=== PATIENT | female | born 1945 | race African-American/Black ===

== ENCOUNTER 2021-08-10 08:53 | Observation (INO) ==
[2021-08-10] MEDS ORDERED: ACETAMINOPHEN 325 MG TABLET PO PRN (08:59)
[2021-08-10] MEDS ORDERED: ALUMINUM/MAGNES/SIMETH MAX STR 30 ML UDCUP PO PRN (08:59)
[2021-08-10] MEDS ORDERED: MORPHINE 2 MG/1 ML SYRINGE IV PRN (08:59)
[2021-08-10] MEDS ORDERED: BISACODYL 5 MG TABLET PO PRN (08:59)
[2021-08-10] MEDS ORDERED: diphenhydrAMINE CAP 25 MG CAPSULE PO PRN (08:59)
[2021-08-10] MEDS ORDERED: ONDANSETRON 4 MG/2 ML VIAL IV PRN (08:59)
[2021-08-10] MEDS ORDERED: ZALEPLON 5 MG CAPSULE PO PRN (08:59)
[2021-08-10] MEDS ORDERED: SIMETHICONE CHEW 125 MG TABLET PO PRN (08:59)
[2021-08-10] MEDS ORDERED: LACTULOSE 20 GM/30 ML UDCUP PO PRN (08:59)
[2021-08-10] MEDS ORDERED: hydrALAZINE 20 MG/1 ML VIAL IV PRN (08:59)
[2021-08-10] MEDS ORDERED: CALCIUM CARBONATE CHEW 500 MG TABLET PO PRN (08:59)
[2021-08-10 10:51] LABS: Basophils # 0.1 10*3/uL (0.0-0.2); Basophils % 1.6 % (0.0-0.8); Eosinophils # 0.1 10*3/uL (0.0-0.87); Eosinophils % 2.3 % (0.00-10.9); Hematocrit 38.1 VOL% (35.7-47.0); Hemoglobin 12.3 GM/DL (12.0-16.0); Immature Granulocytes % 0.2 %; Immature Granulocytes Absolute 0.01 #; Lymphocytes # 1.5 10*3/uL (1.4-4.0); Lymphocytes % 33.9 % (21.3-54.2); Mean Corpuscular HGB Conc 32.3 GM/DL (32-36); Mean Corpuscular Volume 90.7 FL (87-102); Mean Platelet Volume 9.9 FL (9.6-12.0); Monocytes # 0.5 10*3/uL (0.11-0.8); Monocytes % 12.4 % (1.7-12.7); Neutrophils % 49.6 % (38.7-73.9); Platelet Count 292 T/CUMM (130-400); Red Cell Distribution Width 14.4 % (9.3-17.3); White Blood Count 4.4 T/CUMM (4-12)
[2021-08-10] MEDS ORDERED: NITROGLYCERIN SL 0.4 MG TABLET SL PRN (10:56)
[2021-08-10 11:28] LABS: Albumin 3.7 G/DL (3.4-5.0); Bilirubin,Total 0.6 MG/DL (0.20-1.00); Calcium 9.7 MG/DL (8.5-10.1); Osmolality,Calculated 283.1 MOS/KG (273-304)
[2021-08-10 11:34] LABS: Thyroid Stimulating Hormone 1.79 uIU/ml (0.358-3.74)
[2021-08-10] MEDS: ENOXAPARIN 40 MG/0.4 ML SYRINGE SUBCUT SCH (14:12)
[2021-08-10] MEDS: PANTOPRAZOLE 40 MG TABLET PO SCH (14:12)
[2021-08-10] MEDS: AMIODARONE 200 MG TABLET PO SCH ×2 (14:13→20:24)
[2021-08-10] MEDS: METOPROLOL TARTRATE 50 MG TABLET PO SCH (20:24)
[2021-08-10] MEDS ORDERED: SIMVASTATIN 40 MG TABLET PO SCH (21:00)
[2021-08-11 01:26] LABS: RBC,Urine <1 /HPF (0-4)
[2021-08-11 01:27] LABS: Bilirubin,Urine Negative (Negative); Blood, Urine Negative (Negative); Glucose,Urine (UA) Negative (Negative); Ketones,Urine Negative (Negative); Nitrite,Urine Negative (Negative); Protein,Urine Negative (Negative); Urine Appearance Clear (Clear); Urine Color Yellow (Yellow); Urine Urobilinogen 0.2 eU/dL (<2.0)
[2021-08-11 05:24] LABS: Basophils # 0.1 10*3/uL (0.0-0.2); Basophils % 2.1 % (0.0-0.8); Eosinophils # 0.1 10*3/uL (0.0-0.87); Eosinophils % 2.8 % (0.00-10.9); Hematocrit 35.4 VOL% (35.7-47.0); Hemoglobin 11.7 GM/DL (12.0-16.0); Immature Granulocytes % 0.2 %; Immature Granulocytes Absolute 0.01 #; Lymphocytes # 1.9 10*3/uL (1.4-4.0); Lymphocytes % 43.8 % (21.3-54.2); Mean Corpuscular HGB Conc 33.1 GM/DL (32-36); Mean Corpuscular Volume 90.3 FL (87-102); Mean Platelet Volume 9.9 FL (9.6-12.0); Monocytes # 0.8 10*3/uL (0.11-0.8); Monocytes % 17.3 % (1.7-12.7); Neutrophils % 33.8 % (38.7-73.9); Platelet Count 269 T/CUMM (130-400); Red Blood Count 3.92 MC/CUMM (3.8-5.5); Red Cell Distribution Width 14.3 % (9.3-17.3); White Blood Count 4.3 T/CUMM (4-12)
[2021-08-11 05:41] LABS: Calcium 9.9 MG/DL (8.5-10.1); Osmolality,Calculated 277.5 MOS/KG (273-304); Potassium 4.1 MMOL/L (3.5-5.1); Risk Ratio 3.36; VLDL Cholesterol 22.4 MG/DL
[2021-08-11 06:09] LABS: Band Neutrophils 3 % (0-10); Eosinophils 2 % (0-10); Lymphocytes 46 % (20-55); Platelet Estimate Normal; Smudge Cells Few; Total Cells Counted 100
[2021-08-11 06:10] LABS: Anisocytosis Slight; Macrocytosis 1+
[2021-08-11] MEDS ORDERED: CHOLECALCIFEROL 5,000 UNIT TABLET PO SCH (09:00)
[2021-08-11] MEDS ORDERED: CLOPIDOGREL 75 MG TABLET PO SCH (09:00)
[2021-08-11] MEDS ORDERED: LOSARTAN 25 MG TABLET PO SCH (09:00)
[2021-08-11] MEDS ORDERED: ASPIRIN CHEW 81 MG TABLET PO SCH (09:00)
[2021-08-11] MEDS ORDERED: PARoxetine 20 MG TABLET PO SCH (09:00)
[2021-08-11] MEDS: AMIODARONE 200 MG TABLET PO SCH (09:20)
[2021-08-11] MEDS: PANTOPRAZOLE 40 MG TABLET PO SCH (09:20)
[2021-08-11] MEDS: METOPROLOL TARTRATE 50 MG TABLET PO SCH (09:21)
[2021-08-11] MEDS: ENOXAPARIN 40 MG/0.4 ML SYRINGE SUBCUT SCH ×2 (09:47→12:11)
[2021-08-11 12:19] VITALS: BP 126/75
== END 2021-08-11 12:26 | disposition home or self-care (01) ==
LOC: N.TELEN
PROVIDERS: ADMIT Internal Medicine Interventional Cardiology; ATTEND Internal Medicine Interventional Cardiology